=== PATIENT | female | born 1980 | race Caucasian/White ===

== ENCOUNTER → 2020-12-16 | Outpatient (CLI) | payer MEDICAID ==
--- NOTE | 2020-12-16 07:41 | MR ---
EXAMINATION TYPE: MR iac wo/w con DATE OF EXAM: 12/16/2020 COMPARISON: NONE HISTORY: Dizziness x2 months TECHNIQUE: Multiplanar, multisequence images of the brain and brainstem is performed without and with IV contras t, utilizing 7ml mL intravenous Gadavist . Acoustic nerve disorder protocol. FINDINGS: Diffusion weighted images demonstrate no evidence of a recent infarct or other diffusion ab normality. There is no extra-axial fluid collection or significant white matter signal abnormality. The ventricular system and cisternal spaces are normal in size and appearance. The brain volume is age appropriate. Midline structures demonstrate normal morphology. The craniocervical junction appears within normal limits. Normal vascular flow voids are present. The visualized sinuses are clear and the globes are i ntact. Patchy fluid signal inferior left mastoid air cells. Vestibulocochlear complexes appear symmetric and thought within normal limits. No suspicious enhancing cerebellopontine angle mass is identified bila terally. IMPRESSION: Possible mild inferior left side mastoiditis, correlate clinically. Otherwise unremarkabl e study.
== END | disposition home or self-care (01) ==
LOC: RADMRIMAIN 06:01
PROVIDERS: ATTEND Otolaryngology
DX: R42 Dizziness and giddiness (principal)
CPT/HCPCS: 70553; A9585

== ENCOUNTER 2021-11-28 07:50 | Day surgery (SDC) | payer MEDICAID ==
[2021-11-24 08:54] VITALS: BMI 25.4
[~2021-11-28 07:50] MED LIST: LACTATED RINGERS 1,000 ML IV SCH; LIDOCAINE 1% (10MG/ML) FOR IV START INTRADERMA PRN; ONDANSETRON 4 MG/2 ML VIAL IVP PRN
[2021-11-28 08:29] VITALS: TEMP 97
[2021-11-28] MEDS ORDERED: PROPOFOL 10 MG/ML 20 ML VIAL IV ONE (08:29)
[2021-11-28] MEDS ORDERED: LIDOCAINE 2% INJ 20 MG/ML (2 ML VIAL) ONE (08:29)
--- NOTE | 2021-11-28 08:33 | P.GSHP ---
History of Present Illness H&P Date: 11/28/21 Chief Complaint: Rectal bleeding 41-year-old female here today for colonoscopy. Patient with history of chronic constipation and intermittent perianal discomforts. He has had hemorrhoids and anal fissures in the past. Some rectal bleeding at times. Over the last 6 months patient has had increased pain in the anal region. She has not had a colonoscopy before. Past Medical History Past Medical History: GERD/Reflux, Hypertension Additional Past Medical History / Comment(s): Hx Induced Hypertension. History of Any Multi-Drug Resistant Organisms: None Reported Past Surgical History: Section Additional Past Surgical History / Comment(s): Laparotomy for ovarian cyst. Past Anesthesia/Blood Transfusion Reactions: Postoperative Nausea & Vomiting (PONV) Past Psychological History: No Psychological Hx Reported Smoking Status: Never smoker Past Alcohol Use History: Occasional Past Drug Use History: None Reported - Past Family History Father Family Medical History: Cancer, Diabetes Mellitus Additional Family Medical History / Comment(s): Prostate cancer. Medications and Allergies Home Medications Medication Instructions Recorded Confirmed Type No Known Home Medications 11/24/21 11/24/21 History Allergies Allergy/AdvReac Type Severity Reaction Status Date / Time amoxicillin Allergy Rash/Hives Verified 11/24/21 08:45 Sulfa (Sulfonamide Allergy Rash/Hives Verified 11/24/21 08:45 Antibiotics) sulfamethoxazole Allergy Rash/Hives Verified 11/24/21 08:45 [From Bactrim] trimethoprim [From Bactrim] Allergy Rash/Hives Verified 11/24/21 08:45 Surgical - Exam Vital Signs Temp Pulse Resp BP Pulse Ox 97 F L 114 H 18 156/87 100 11/28/21 08:12 11/28/21 08:12 11/28/21 08:12 11/28/21 08:12 11/28/21 08:12 Physical exam: General: Well-developed, well-nourished HEENT: Normocephalic, sclerae nonicteric Abdomen: Nontender, nondistended Extremities: No edema Neuro: Alert and oriented Assessment and Plan (1) Rectal bleeding Narrative/Plan: Will proceed with colonoscopy at this time Current Visit: Yes Status: Acute Code(s): K62.5 - HEMORRHAGE OF ANUS AND RECTUM SNOMED Code(s): 70516833
--- NOTE | 2021-11-28 08:53 | P.PCN ---
Date of Procedure: 11/28/21 Procedure(s) Performed: PREOPERATIVE DIAGNOSIS: Rectal bleeding POSTOPERATIVE DIAGNOSIS: Tortuous colon, slight anal stricture, small anal fissure, unable to advance beyond distal transverse colon PROCEDURE: Colonoscopy ANESTHESIA: MAC SURGEON: Kirk Lieberman M.D. SPECIMENS: None ENDOSCOPIC PROCEDURE: The patient was placed on the endoscopy table in the left decubitus position. Digital rectal examination with the fifth digit revealed some narrowing of the anal canal. There appeared to be a small fissure anteriorly. The Olympus pediatric colonoscope was inserted into the anus and passed under direct visualization to the distal transverse colon. We could not advance the scope beyond the distal transverse colon despite multiple body position changes and abdominal pressure. The scope was slowly withdrawn. No abnormalities were seen throughout the transverse descending sigmoid and rectum. Retroflexion at the anus revealed a small hypertrophied anal papilla but otherwise appeared fairly normal. Perianal and digital rectal examination took place again and other than a small anterior anal fissure and some generalized narrowing of the anal canal no definite abnormalities were noted. The patient was taken to the recovery room in stable condition per anesthesia guidelines. RECOMMENDATIONS: Resume diet. Continue stool softeners. We'll discuss options of barium enema with patient.
[2021-11-28 10:07] VITALS: PULSE 64; RESP 16
[2021-11-28 10:08] VITALS: BP 187/90
== END 2021-11-28 09:50 | disposition home or self-care (01) ==
LOC: ORWHC2ENDO 07:50
PROVIDERS: ATTEND Surgery
DX: K62.4 Stenosis of anus and rectum (principal); K60.2 Anal fissure, unspecified; K21.9 Gastro-esophageal reflux disease without esophagitis; I10 Essential (primary) hypertension; Z83.3 Family history of diabetes mellitus; Z88.1 Allergy status to other antibiotic agents; Z88.2 Allergy status to sulfonamides
CPT/HCPCS: 45378; 81025; J2704; J2001

== ENCOUNTER → 2022-08-24 | Outpatient (CLI) | payer MEDICAID ==
--- NOTE | 2022-08-24 09:14 | MM ---
Reason for Exam: Screening (asymptomatic). Baseline mammogram. Patient History: Menarche at age 13. First Full-Term at age 31. Premenopausal. Patient has history of breast feeding. Maternal aunt had breast cancer, age 70. Last menstrual period: 08/17/2022 Risk Values: Jessica 5 year model risk: 0.7%. NCI Lifetime model risk: 12.1%. Prior Study Comparison: Patient's first Mammogram. Tissue Density: The breast tissue is heterogeneously dense. This may lower the sensitivity of mammography. Findings: Analyzed By CAD. There is no suspicious group of microcalcifications or suspicious mass in either breast. Overall Assessment: Negative, BI-RAD 1 Management: Screening Mammogram of both breasts in 1 year. Some advise bilateral breast ultrasound surveillance in patients with background dense tissue. A clinical breast exam by your physician is recommended on an annual basis and results should be correlated with mammographic findings. Electronically signed and approved by: Keon Arthur M.D.
== END | disposition home or self-care (01) ==
LOC: RADMAMWWP 06:53
PROVIDERS: ATTEND Obstetrics & Gynecology
DX: Z12.31 Encounter for screening mammogram for malignant neoplasm of breast (principal); Z80.3 Family history of malignant neoplasm of breast
CPT/HCPCS: 77063; 77067

== ENCOUNTER → 2023-08-29 | Outpatient (CLI) | payer MEDICAID ==
--- NOTE | 2023-08-29 08:41 | MM ---
Reason for Exam: Screening (asymptomatic). Last mammogram was performed 1 year(s) and 1 month(s) ago. Patient History: Menarche at age 13. First Full-Term at age 31. Premenopausal. Patient has history of breast feeding. Maternal aunt had breast cancer, age 70. Last menstrual period: 08/13/2023 Risk Values: Jessica 5 year model risk: 0.7%. NCI Lifetime model risk: 12.0%. Prior Study Comparison: 08/24/2022 Bilateral MG 3D screening mammo w/cad, [facility]. Tissue Density: The breast tissue is heterogeneously dense. This may lower the sensitivity of mammography. Findings: Analyzed By CAD. There is no suspicious group of microcalcifications or new suspicious mass. Overall Assessment: Negative, BI-RAD 1 Management: Screening Mammogram of both breasts in [address] [facility] will attempt to contact patient to return for supplemental views and ultrasound if indicated. Patient should continue monthly self-breast exams. A clinical breast exam by your physician is recommended on an annual basis. This exam should not preclude additional follow-up of suspicious palpable abnormalities. Note on Jessica scores and lifetime risk: 1. A Jessica score greater than 3% is considered moderate risk. If this is the case, consider specialist referral to assess eligibility for a risk reducing agent. 2. If overall lifetime risk for the development of breast cancer is 20% or higher, the patient may qualify for future screening with alternating mammogram and breast MRI. Electronically signed and approved by: Raciel Álvarez DO
== END | disposition home or self-care (01) ==
LOC: RADMAMWWP 06:47
PROVIDERS: ATTEND Obstetrics & Gynecology
DX: Z12.31 Encounter for screening mammogram for malignant neoplasm of breast (principal); Z80.3 Family history of malignant neoplasm of breast
CPT/HCPCS: 77063; 77067

== ENCOUNTER → 2024-07-07 | Outpatient (CLI) | payer MEDICAID ==
[2024-07-07 10:22] LABS: HCT 41.8 % (37.2-46.3); HGB 12.6 g/dL (12.0-15.0); MCHC 30.1 g/dL (32.0-37.0); MCV 86.4 FL (80.0-97.0); Mean Platelet Volume 11.2 FL (9.5-12.2); NRBC Per 100 WBC 0 X 10*3/uL (0.00-0.01); Platelet Count 327 X 10*3/uL (140-440); RBC 4.84 X 10*6/uL (4.10-5.20); RDW 13.4 % (11.5-14.5); WBC 5.48 X 10*3/uL (4.50-10.00)
[2024-07-07 10:38] LABS: ALT 14 U/L (8-44); AST 20 U/L (13-35); Albumin 4.7 g/dL (3.8-4.9); Albumin/Globulin Ratio 1.74 Ratio (1.60-3.17); Alkaline Phosphatase 53 U/L (41-126); BUN/Creat Ratio 19.43 Ratio (12.00-20.00); Blood Urea Nitrogen 13.6 mg/dL (9.0-27.0); Calcium 9.9 mg/dL (8.7-10.3); Carbon Dioxide 26.6 mmol/L (21.6-31.8); Chloride 103 mmol/L (96-109); Chol/HDL Ratio 2.66 Ratio; Globulin 2.7 g/dL (1.6-3.3); Glucose 91 mg/dL (70-110); LDL Cholesterol,Calculated 107.8 mg/dL (0.0-131.0); Potassium 4.3 mmol/L (3.5-5.5); Sodium 140 mmol/L (135-145); Total Bilirubin 0.3 mg/dL (0.3-1.2); Total Protein 7.4 g/dL (6.2-8.2)
== END | disposition home or self-care (01) ==
LOC: LABWHC1 07:06
PROVIDERS: ATTEND Obstetrics & Gynecology
DX: N95.9 Unspecified menopausal and perimenopausal disorder (principal)
CPT/HCPCS: 36415; 80053; 80061; 85027